=== PATIENT | male | born 1960 | race Caucasian/White ===

== ENCOUNTER 2019-10-03 13:34 | Emergency (ER) | payer BC ==
[2019-10-03 13:59] VITALS: BP 156/80; PULSE 60; RESP 18; TEMP 98.2
[2019-10-03] MEDS ORDERED: PROPARACAINE 0.5% OPHTH DROPS 15 ML BTL LEFT EYE STA (14:03)
[2019-10-03] MEDS ORDERED: GENTAMICIN 0.3% OPHTH DROPS 5 ML BTL LEFT EYE STA (15:02)
[2019-10-03] MEDS ORDERED: ACETAMINOPHEN TAB 325 MG TAB PO STA (15:11)
[2019-10-03] MEDS ORDERED: DIPH,PERTUS(ACELL)TETVAC-LF 0.5 ML VIAL IM ONE (15:14)
--- NOTE | 2019-10-03 15:16 | ED ---
General Adult HPI - General Chief complaint: Eye Problems Stated complaint: lt eye problem Time Seen by Provider: 10/03/19 14:02 Source: patient, RN notes reviewed, old records reviewed Mode of arrival: ambulatory Limitations: no limitations - History of Present Illness Initial comments: 59-year-old male patient presents to ED. Chief complaint of left eye pain. Patient reports that he woke up this morning approximately 9:00 had pain in his left eye. Patient reports that Progressively worse. Patient does not remember scratchings aggravating in his eye. Patient is not a contact lens user. Denies any other complaints. Systemic: Pt denies fatigue, fever/chills, rash. Pt denies weakness, night sweats, weight loss. Neuro: Pt denies headache, visual disturbances, syncope or pre-syncope. HEENT: Pt denies ocular discharge or irritation, otalgia, rhinorrhea, pharyngitis or notable lymphadenopathy. Cardiopulmonary: Pt denies chest pain, SOB, heart palpitations, dyspnea on exertion. Abdominal/GI: Pt denies abdominal pain, n/v/d. : Pt denies dysuria, burning w/ urination, frequency/urgency. Denies new onset urinary or bowel incontinence. MSK: Pt denies myalgia, loss of strength or function in extremities. Neuro: Pt denies new onset weakness, paresthesias. - Related Data Previous Rx's Medication Instructions Recorded Gentamicin 0.3% Ophth Soln 2 drops LEFT EYE Q4HR 5 Days #1 10/03/19 [Garamycin 0.3% Ophth Soln] bottle Allergies Allergy/AdvReac Type Severity Reaction Status Date / Time No Known Allergies Allergy Verified 10/03/19 13:59 Review of Systems ROS Statement: Those systems with pertinent positive or pertinent negative responses have been documented in the HPI. ROS Other: All systems not noted in ROS Statement are negative. Past Medical History Past Medical History: No Reported History History of Any Multi-Drug Resistant Organisms: None Reported Past Surgical History: No Surgical Hx Reported Past Psychological History: No Psychological Hx Reported Smoking Status: Never smoker Past Alcohol Use History: Occasional Past Drug Use History: None Reported General Exam - General Exam Comments Initial Comments: Constitutional: NAD, AOX3, Pt has pleasant affect. HEENT: NC/AT, trachea midline, neck supple, no lymphadenopathy. Posterior pharynx non erythematous, without exudates. External ears appear normal, without discharge. Mucous membranes moist. Eyes PERRLA, EOM intact. There is no scleral icterus. No pallor noted. Injection noted to left eye. Intraocular pressure right eye average of 20. Intraocular pressure left eye average of 22. Corneal abrasion noted at approximately 3:00. Visual acuity left eye 20/25, visual acuity right eye 20/30. Patient reports that visual acuity is at baseline. Cardiopulmonary: RRR, no murmurs, rubs or gallops, no JVD noted. Lungs CTAB in anterior and posterior dahl. No peripheral edema. Abdominal exam: Abdomen soft and non-distended. Abdomen non-tender to palpation in all 4 quadrants. Bowel sounds active in LLQ. No hepatosplenomegaly. No ecchymosis Neuro: CN II-XII intact. No nuchal rigidity. No raccon eyes, no elena sign, no hemotympanum. No cervical spinal tenderness. No temporal tenderness or palpable cord. MSK: No posterior calf tenderness bilaterally, homans sign negative bilaterally. Posterior tibialis and radial pulse +2 bilaterally. Sensation intact in upper and lower extremities. Full active ROM in upper and lower extremities, 5/5 stregnth. Limitations: no limitations Course Vital Signs 10/03/19 13:53 Temperature 98.2 F Pulse Rate 60 Respiratory 18 Rate Blood Pressure 156/80 O2 Sat by Pulse 97 Oximetry Medical Decision Making - Medical Decision Making 59-year-old male patient presents to ED. Chief complaint of left eye pain. Pat tomnatalie reports that he woke up this morning approximately 9:00 had pain in his left eye. Patient reports that Progressively worse. Patient does not remember scratchings aggravating in his eye. Patient is not a contact lens user. Denies any other complaints. Patient will signs stable, afebrile. Physical exam displayed: Injection noted to left eye. Intraocular pressure right eye average of 20. Intraocular pressure left eye average of 22. Corneal abrasion noted at approximately 3:00. Visual acuity left eye 20/25, visual acuity right eye 20/30. Patient reports that visual acuity is at baseline. Patient started on gentamicin eyedrops. Will be discharged and will follow-up with ophthalmology tomorrow. We'll turn the ER physician worsens. Case discussed and pt seen by Dr. Marr. Disposition Clinical Impression: Corneal abrasion Disposition: HOME SELF-CARE Condition: Stable Instructions (If sedation given, give patient instructions): Corneal Abrasion (ED) Additional Instructions: Follow-up with wire machine cutter tomorrow. Follow-up with primary care provider in 1-2 days. Take antibiotics as directed. Return to ER if condition worsens. Prescriptions: Gentamicin 0.3% Ophth Soln [Garamycin 0.3% Ophth Soln] 2 drops LEFT EYE Q4HR 5 Days #1 bottle Is patient prescribed a controlled substance at d/c from ED?: No Referrals: Thien Tejeda MD [Primary Care Provider] - 1-2 days Manule Pineda MD [STAFF PHYSICIAN] - 1-2 days
== END 2019-10-03 15:50 | disposition home or self-care (01) ==
LOC: EC 13:34
DX: S05.02XA Injury of conjunctiva and corneal abrasion without foreign body, left eye, initial encounter (principal); X58.XXXA Exposure to other specified factors, initial encounter
CPT/HCPCS: 99283

== ENCOUNTER → 2020-05-23 | Outpatient (CLI) | payer BC ==
--- NOTE | 2020-05-23 17:12 | CONS ---
CONSULTATION DATE OF SERVICE: 05/23/2020 A 60-year-old gentleman who has been evaluated in the [facility] for possible obstructive sleep apnea-hypopnea syndrome. HISTORY OF PRESENT ILLNESS/SLEEP-WAKE EVALUATION: Patient's usual sleep schedule from 10:30 pm to 6:30 am, basically 7 days a week, usually no problem with falling asleep. No TV in bedroom. He sleeps on the side and stomach position. He wakes up from sleep 2 times with nocturia, episodes of grinding teeth and also he wakes up with episodes of palpitations. In the morning he wakes up tired, has difficulties to pay attention, has problems with the memory. Miller Sleepiness Scale is 4. He also has episodes of dizziness during the day. PAST MEDICAL HISTORY: Positive for hyperlipidemia. Recently, according to patient, level of cholesterol normalized, again dizziness spells. PAST SURGICAL HISTORY: None. MEDICATIONS: None. SOCIAL HISTORY: Positive for smoking in the past for 30 pack years, quit. Positive history of usage of marijuana, quit. Alcohol consumption occasional, presently quit. REVIEW OF SYSTEMS: Awakenings from sleep with nocturia, episodes of dizziness, episodes of palpitation when wake up from sleep and also in his sleep, patient snores loudly and has positive history of witnessed episodes of stopped breathing during the sleep. PHYSICAL EXAM: A gentleman without distress, BP 100/66, HR 98, RR 16, height 5 foot 9, weight 197, BMI 20.9, temperature 98.2, oxygen saturation at room air 98%. Neck is 17 inches in circumference. Oropharynx extremely low position of soft palate. Mallampati 4. LUNGS: Clear to percussion and to auscultation. Good air exchange. No wheezing or rhonchi. HEART: S1, S2 regular. No murmurs, gallops, or rubs. ABDOMEN: Soft and nontender. Bowel sounds are present. No organomegaly appreciated. EXTREMITIES: No clubbing or cyanosis. 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 Cranial nerves 2 to 7 intact. There is no fasciculation or atrophy. noted. No focal deficits observed. IMPRESSION: 1. Loud snoring, witnessed episodes of stopped breathing during the sleep, extremely low position of soft palate, wide neck, obstructive sleep apnea-hypopnea syndrome. 2. Episodes of dizziness. 3. Slightly low blood pressure in the office. 4. History of hyperlipidemia in the past. 5. Awakenings with palpitations. PLAN: 1. Polysomnography for evaluation of patient's breathing during sleep. 2. CPAP/BiPAP titration if sleep study confirms obstructive sleep apnea-hypopnea syndrome. 3. Preferable position during sleep on the side. 4. No driving if patient feels any sleepiness. 5. I will see patient for follow up visit to explain results of testing and following plan. Thank you very much for referring this patient for consultation. Sincerely, Vic Montiel MD, PhD, FAASM Diplomat of [employer] [facility] [place] MMODL / IJN: [id number] /
== END | disposition home or self-care (01) ==
LOC: SLEEP 15:39
PROVIDERS: ATTEND Internal Medicine
DX: G47.33 Obstructive sleep apnea (adult) (pediatric) (principal); R03.1 Nonspecific low blood-pressure reading; R00.2 Palpitations; R42 Dizziness and giddiness; Z87.898 Personal history of other specified conditions
CPT/HCPCS: 99211

== ENCOUNTER → 2024-09-28 | Outpatient (CLI) | payer BC | END | disposition home or self-care (01) | LOC: RADNMMAIN 08:48 | PROVIDERS: ATTEND Family Medicine | DX: R94.39 Abnormal result of other cardiovascular function study (principal) ==